=== PATIENT | female | born 1975 | race Two or more races ===

== ENCOUNTER 2020-01-22 21:39 | Emergency (ER) | payer SELFPAY ==
[~2020-01-22] VITALS: Ht 152.4 cm; Wt 89.4 kg
[2020-01-22 22:12] VITALS: BP 112/67
[2020-01-23] MEDS ORDERED: KETOROLAC TROMETH 60MG/2ML VIAL IM ONE (02:15)
== END 2020-01-23 03:23 | disposition home or self-care (01) ==
LOC: ER 21:39
DX: S46.911A Strain of unspecified muscle, fascia and tendon at shoulder and upper arm level, right arm, initial encounter (principal); S00.83XA Contusion of other part of head, initial encounter; S60.221A Contusion of right hand, initial encounter; M54.2 Cervicalgia; Y04.0XXA Assault by unarmed brawl or fight, initial encounter; Y93.89 Activity, other specified; Y92.89 Other specified places as the place of occurrence of the external cause; Y99.8 Other external cause status
CPT/HCPCS: 70450; 70486; 72125; 73130; 96372; 99285; J1885